=== PATIENT | male | born 1985 | race Caucasian/White ===

== ENCOUNTER 2017-01-02 10:06 | Day surgery (SDC) | payer OTHER ==
[2017-01-01 16:41] VITALS: BMI 23.8
[2017-01-02] VITALS (12 sets, daily range): BP systolic 120–148; BP diastolic 59–80; PULSE 63–88; RESP 15–78; Ht 180.3 cm; Wt 78.4 kg
[~2017-01-02] VITALS: Ht 180.3 cm; Wt 78.4 kg
[2017-01-02] MEDS ORDERED: FENTAnyl 50 MCG/ML VIAL ONE (10:54)
[2017-01-02] MEDS ORDERED: LIDOCAINE 2% (SDV) 5 ML INJ ONE (10:54)
[2017-01-02] MEDS ORDERED: PROPOFOL 20 ML ONE (10:54)
[2017-01-02] MEDS ORDERED: MIDAZOLAM 1 MG/ML 2 ML INJ ONE (10:54)
[2017-01-02] MEDS ORDERED: ROPIVACAINE 0.5 % 30 ML VIAL ONE ×2 (10:57→11:51)
[2017-01-02] MEDS ORDERED: POLYMYXIN/BACITRACIN 1L IRRIG ONE (11:51)
--- NOTE | 2017-01-02 12:09 | HPN ---
Date/Time of Note Date/Time of Note DATE: 01/02/17 TIME: 12:09 Interval H&P Admission Note Pt. seen H&P reviewed: No system changes TYLER HANKS MD Jan 02, 2017 12:09
[2017-01-02] MEDS ORDERED: CEFAZOLIN 1 GM INJ ONE (12:31)
[2017-01-02] MEDS ORDERED: ONDANSETRON 4 MG INJ ONE ×2 (12:31→15:33)
[2017-01-02] MEDS ORDERED: METOCLOPRAMIDE 10 MG INJ ONE (12:31)
[2017-01-02] MEDS ORDERED: ACETAMINOPHEN 1000MG/100ML IV 100 ML ONE (12:32)
[2017-01-02] MEDS ORDERED: MEPERIDINE 25 MG INJ IV PRN (14:30)
[2017-01-02] MEDS ORDERED: DIPHENHYDRAMINE 50 MG INJ IV PRN (14:30)
[2017-01-02] MEDS ORDERED: PROCHLORPERAZINE 10 MG INJ IV PRN (14:30)
[2017-01-02] MEDS ORDERED: oxyCODONE 5 MG TAB PO PRN ×2 (14:30)
[2017-01-02] MEDS ORDERED: FENTAnyl 50 MCG/ML VIAL IV PRN (14:30)
[2017-01-02] MEDS ORDERED: HYDROmorphONE (0.2 MG/ML) 10ML SYG IV PRN ×2 (14:30)
[2017-01-02] MEDS ORDERED: ONDANSETRON 4 MG INJ IV PRN (14:30)
[2017-01-02] MEDS ORDERED: HYDROmorphONE 2 MG/ML SYG ONE (14:37)
[2017-01-02] MEDS ORDERED: BACITRACIN/POLYMYXIN 28.35 GM OINT TOP ONE (15:38)
[2017-01-02] MEDS ORDERED: NALOXONE (0.4 MG/ML) INJ ONE (15:43)
--- NOTE | 2017-01-02 16:14 | OPR ---
Date/Time of Note Date/Time of Note DATE: 01/02/17 TIME: 16:14 Operative Report Procedure Date: Jan 02, 2017 Preoperative Diagnosis 1. LEFT KNEE ACL TEAR Postoperative Diagnosis 1. LEFT KNEE ACL TEAR 2. LEFT KNEE PARTIAL MEDIAL MENISCAL TEAR Operation Performed 1. LEFT KNEE ACL RECONSTRUCTION WITH SEMITENDINOSUS AUTOGRAFT HYBRID WITH TIBIALIS ANTERIOR ALLOGRAFT - 9.5 GRAFT 2. LEFT KNEE PARTIAL MEDIAL MENISECTOMY Surgeon: TYLER HANKS MD social services assistant: GERI LUCIO Anesthesia: general, other (FASCIA-ILIACUS BLOCK, LOCKA) Anesthesiologist: LULI VÁSQUEZ MD Tourniquet Time: 135 MIN AT 250 MM hG Estimated Blood Loss: 0 - 10 ml's Grafts/Implants TIBIALIS ANTERIOR ALLOGRAFT 8-10 MITEK BIOINTRAFIX MITEK ADJUSTABLE RIGIDLOOP. Complications: None Pt Condition Post Procedure: stable Disposition: PACU Procedure Description RISK NOTE: Patient was explained the risks and benefits of the surgery in the patients marshall language, including not limited to infection, bleeding, loss of limb, loss of life, need for future surgery, risk of anesthesia, risk of injury to the blood vessels and nerves, ligaments or tendons, and risk of deep vein thrombosis. Patient understood these risks and wished to proceed with the surgery. INDICATIONS: The patient is a 31-year-old male with a prolonged history of right knee giving way after tearing his ACL in a sporting accident. He has had continued episodes of instability. The patient has restored their range of motion and is now brought to the operating room for ACL reconstruction, possible partial medial and lateral meniscectomy versus medial and lateral meniscal repair, chondroplasty and debridement. The risks, benefits, and alternatives of surgery were discussed with the patient. The risks included but were not limited to infection, bleeding, damage to vessels and nerves, loss of motion, continued pain, re-tear of the meniscus, deep venous thrombosis, and complications due to anesthesia including nerve injury, myocardial infarction, stroke, , etc. The patient stated understanding of the nature of the surgical procedure and gave written and verbal consent to proceed. PROCEDURE: The patient was brought to the operating room and placed supine on the operating room table. General anesthesia was induced and a fascia iliacus block was placed. The patient was given preoperative antibiotics The left lower extremity was examined under anesthesia. Range of motion was 0 degrees of extension to 135 degrees of flexion. There was no varus or valgus or posterolateral instability. He had no instability to varus or valgus stress at 0 or 30 degrees. He had a 2+ Janet and drawer with a positive pivot shift The left lower extremity was then prepped and draped in the usual fashion. A tourniquet was placed proximally on the thigh over a bias stockinette. A standard anterolateral parapatellar stab wound was created. The knee joint was entered with a blunt-tipped obturator, followed by the 30-degree video arthroscope. An anteromedial portal was established under arthroscopic control. A routine arthroscopic survey was performed. The suprapatellar pouch was unremarkable. The undersurface of the patella was well-preserved. The patella appeared to track centrally within the trochlear groove. 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 The medial and lateral gutters were inspected and there was no loose body seen. There was no hypertrophied plica. The popliteal hiatus was entered and was unremarkable. The lateral compartment was entered. The lateral femoral condyle exhibited no chondromalacia and the lateral tibial plateau exposed no chondromalacia. The lateral meniscus was firm, stable and intact The intercondylar notch was visualized. The anterior cruciate ligament was torn from its femoral origin. There was an empty lateral wall. Posteromedially there was no loose body seen. The posterior cruciate ligament was visualized and appeared intact. The notch appeared to a be a narrower notch The medial compartment was entered. The articular surfaces of the medial femoral condyle and medial tibial plateau were visualized. There was minimal chondromalacia noted on the medial femoral condyle, and chondromalacia noted on the medial tibial plateau. The medial meniscus was visualized and appeared to have a small amount of tearing at the posterior horn extending to the mid body. The meniscus was then trimmed with a biter to a firm and stable rim and probed proving there was no further injury. Attention was turned to reconstruction of the anterior cruciate ligament. Following exsanguination with an Esmarch bandage the tourniquet was inflated to 250 mm of mercury. Using a motorized shaver a limited notchplasty was performed, exposing the lateral wall and roof of the notch, identifying the [id number] position. The stump of the anterior cruciate ligament was debrided. A Vector guide was placed intra-articularly between the tibial spines in line with the anterior horn of the lateral meniscus. A Linsey wire was then inserted into the knee through a 3 cm incision made over the proximal medial tibia for the hamstring harvest. The incision was deepened through the subcutaneous tissue with subperiosteal dissection achieved. Bleeding points were coagulated with the Bovie electrocautery. The Semitendinosis and gracilis were harvested and taken to the back table, however the totak graft size was roughly 7mm which would be too small and thus an tibialis anterior allograft was opened and hybrid construct was created with the semitendinous accommodating a 10 mm graft on the femoral side and 9.5 mm graft on the tibial side. Tibial drilling was then carried out first with a 6 mm followed by a 8 mm then 10 mm cylindrical reamer with the guide set at 55 degrees. Via an accessory medial portal, the Beath pin was drilled out the femoral cortex and skin with the knee in hyperflexion. The femoral tunnel was then created, with a spade tip guidewire, Depth-gauging confirmed a tunnel length of 40 mm. Then reaming proceeded, first with a 6 mm then an 8 mm then 10 mm drill to a depth of 30 mm. A adjustable rigid loop Mitek button was selected. The graft was inserted intra -articularly and the Mitek button was deployed. The graft was cycled for 20 cycles with 25 pounds of force to pre-load the graft. Tibial fixation was carried out using a 8-10 Bio Intra-Fix in 10 degrees of flexion with a posterior drawer. At the completion of surgery the patient had a firm stable Janet. There was a negative pivot shift. He had a 0 firm Janet and a negative pivot shift. There was no evidence for any roof or lateral wall impingement. The tourniquet was deflated at 135 minutes. The knee was irrigated with two liters of lactated Ringer's solution. Excess fluid was drained. The tibial wounds were then copiously irrigated with bacitracin solution and closed in layers with #0, #2-0 and #3-0 Vicryl. The skin was reapproximated with #4-0 Monocryl. The knee was injected with 20 cc of 0.5% plain ropivacaine. A dry sterile dressing was applied, followed by a bulky bandage and VENKATA stocking with a cold therapy unit placed over the bulky bandage and VENKATA stocking, insuring no contact with the skin. A postoperative TROM brace was applied locked in full extension. The patient was awakened in the Operating Room and transported to the Recovery Room in satisfactory condition. He appeared to tolerate the procedure well. At the completion of surgery the patient had soft compartments, palpable pulses, and brisk capillary refill. There were no complications noted. TYLER HANKS MD Jan 02, 2017 16:14
--- NOTE | 2017-01-02 16:14 | OPR ---
Date/Time of Note Date/Time of Note DATE: 01/02/17 TIME: 16:11 Operative Report Preoperative Diagnosis 1. LEFT KNEE ACL TEAR Postoperative Diagnosis 1. LEFT KNEE ACL TEAR 2. LEFT KNEE PARTIAL MEDIAL MENISCAL TEAR Operation/Procedure Performed 1. LEFT KNEE ACL RECONSTRUCTION WITH SEMITENDINOSUS AUTOGRAFT HYBRID WITH TIBIALIS ANTERIOR ALLOGRAFT - 9.5 GRAFT 2. LEFT KNEE PARTIAL MEDIAL MENISECTOMY Surgeon: TYLER HANKS MD family law legal assistant: GERI LUCIO Anesthesia: general, other (FASCIA-ILIACUS BLOCK, LOCKA) Estimated Blood Loss: 0 - 10 ml's Grafts/Implants TIBIALIS ANTERIOR ALLOGRAFT 8-10 MITEK BIOINTRAFIX MITEK ADJUSTABLE RIGIDLOOP. Complications: None TYLER HANKS MD Jan 02, 2017 16:14
[2017-01-02] MEDS ORDERED: morphine 4 MG/ML VIAL IV PRN (16:30)
[2017-01-02] MEDS ORDERED: KETOROLAC 30 MG INJ IV PRN (17:00)
--- NOTE | 2017-01-03 10:00 | OPPN ---
Date/Time of Note Date/Time of Note DATE: 01/03/17 TIME: 09:58 Anesthesia Follow up Anesthesia Follow up Last documented vital signs Vital Signs Date Time Temp Pulse Resp B/P Pulse Ox O2 Delivery O2 Flow Rate FiO2 01/02/17 20:35 98.4 01/02/17 17:25 78 78 130/67 100 Room Air 01/02/17 16:49 2.0 Respiratory function: WNL Cardiovascular function: WNL Comments Pt is POD 1 s/p L knee ACL reconstruction with hamstring autograft under GA with L fascia iliaca nerve block. Pt was contacted at home at number listed in EMR. Pt's block wore off this morning at 6:30 am, [place], motor and sensory intact , pain controlled with percocet. Tolerating po's, using knee brace. No complications from anesthesia. LULI VÁSQUEZ MD Jan 03, 2017 10:00
== END 2017-01-02 18:57 | disposition home or self-care (01) ==
LOC: SDS 10:06
PROVIDERS: ATTEND Orthopaedic Surgery
DX: S83.512A Sprain of anterior cruciate ligament of left knee, initial encounter (principal); S83.242A Other tear of medial meniscus, current injury, left knee, initial encounter; X58.XXXA Exposure to other specified factors, initial encounter; Y93.9 Activity, unspecified; Y99.9 Unspecified external cause status; Y92.9 Unspecified place or not applicable
CPT/HCPCS: 29881; 29888; C1762; J0131; J0690; J1170; J1200; J1885; J2175; J2250; J2310; J2405; J2765; J2795; J3010; Z7512; Z7610